=== PATIENT | male | born 1985 | race Hispanic/Latino ===

== ENCOUNTER 2018-06-13 12:56 | Emergency (ER) | payer SELFPAY ==
[2018-06-13 13:03] VITALS: BMI 20.9
[2018-06-13] MEDS ORDERED: Sodium Chloride 0.9% 1,000 ML IV ONE (13:29)
[2018-06-13] MEDS ORDERED: Sodium Chloride 0.9% 1,000 ML ONE (13:41)
[2018-06-13 13:56] LABS: BASO # 0.1 K/uL (0.0-0.2); BASO % 0.7 % (0.0-2.0); EOS # 0.1 K/uL (0.0-0.7); EOS % 0.6 % (0.0-4.0); HEMOGLOBIN 16.8 g/dL (12.0-18.0); LYMPH # 1.6 K/uL (1.0-4.3); LYMPH % 16.8 % (20.0-40.0); MEAN CELL VOLUME 89.5 fL (80.0-94.0); MEAN CORPUSCULAR HEMOGLOBIN 31.2 pg (27.0-31.0); MEAN CORPUSCULAR HGB CONC 34.9 g/dL (33.0-37.0); MEAN PLATELET VOLUME 7.4 fL (7.2-11.7); MONO # 0.7 K/uL (0.0-0.8); MONO % 7.3 % (0.0-10.0); NEUT # 7.3 K/uL (1.8-7.0); NEUT % 74.6 % (50.0-75.0); NRBC % 0.1 % (0.0-2.0); RBC 5.39 Mil/uL (4.40-5.90); RED CELL DISTRIBUTION WIDTH 13.1 % (11.5-14.5); WHITE BLOOD COUNT 9.7 K/uL (4.8-10.8)
[2018-06-13 14:07] LABS: ALB/GLOB RATIO 1.6 (1.0-2.1); ALBUMIN 4.7 g/dL (3.5-5.0); ALT/SGPT 24 U/L (21-72); AST/SGOT 25 U/L (17-59); BLOOD UREA NITROGEN 17 mg/dL (9-20); CALCIUM 9.8 mg/dl (8.6-10.4); GFR NON-AFRICAN AMERICAN > 60; LIPASE 28 U/L (23-300)
--- NOTE | 2018-06-13 14:42 | CT ---
CT abdomen and pelvis HISTORY: Left flank pain. Comparison: None available. Technique: Multiple contiguous axial images were performed through the abdomen and pelvis without the use of intravenous contrast. Subsequently, sagittal and coronal reformatted images were obtained. This CT exam was performed using one or more of the following dose reduction techniques: Automated exposure control, adjustment of the mA and/or kV according to patient size, and/or use of iterative reconstruction technique. Findings: 5 millimeter calculus seen within the posterior left urinary bladder near the left ureterovesicular junction with associated moderate left hydroureteronephrosis. 2 millimeter subpleural nodular density in the lingula. Mild bibasilar atelectasis. No pleural or pericardial effusion. Liver and gallbladder are preserved. Spleen is preserved. Adrenal glands are preserved. Pancreas is preserved. Upper abdominal bowel is preserved. 4 and 3 millimeter nonobstructive calculi in the lower pole of the right kidney. Heterogeneous prostate. Fecal retention in the colon. Scattered areas of underdistention in the left hemicolon. Appendix not well visualized on this noncontrast study. If there is concern for appendiceal pathology, consider correlation with a contrast-enhanced CT. Few shotty para-aortic and mesenteric lymph nodes. Osseous structures grossly preserved. Impression: 5 millimeter calculus seen within the posterior left urinary bladder near the left ureterovesicular junction with associated moderate left hydroureteronephrosis. 4 and 3 millimeter nonobstructive calculi in the lower pole of the right kidney.
[2018-06-13 15:48] VITALS: BP 128/76; PULSE 79; RESP 16; TEMP 98.2; O2SAT 98
--- NOTE | 2018-06-13 16:56 | C.PDOC ---
History Of Present Illness 32 y/o male presents to the ED complaining of left flank pain for 1 week. Pain is described as sharp and wrapping around to the LLQ. Patient also reports mild nausea, but no vomiting. Denies any associated dysuria, hematuria, fever, chills, or diarrhea. Time Seen by Provider: 06/13/18 13:15 Chief Complaint (Nursing): Abdominal Pain History Per: Patient History/Exam Limitations: no limitations Onset/Duration Of Symptoms: Days Current Symptoms Are (Timing): Still Present Radiation Of Pain To:: Flank Associated Symptoms: Nausea Past Medical History Reviewed: Historical Data, Nursing Documentation, Vital Signs Vital Signs: Last Vital Signs Temp 98.2 F 06/13/18 15:47 Pulse 79 06/13/18 15:47 Resp 16 06/13/18 15:47 BP 128/76 06/13/18 15:47 Pulse Ox 98 06/13/18 15:47 Surgical History: No Surg Hx - [facility] Procedures CLOSURE SKIN & SUBCUTANEOUS NEC (11/15/14) Family History: States: No Known Family Hx - Social History Hx Tobacco Use: Yes Hx Alcohol Use: Yes Hx Substance Use: Yes - Immunization History Hx Tetanus Toxoid Vaccination: No Hx Influenza Vaccination: No Hx Pneumococcal Vaccination: No Review Of Systems Constitutional: Negative for: Fever, Chills Gastrointestinal: Positive for: Nausea, Abdominal Pain (and left flank). Negative for: Vomiting, Diarrhea Genitourinary: Negative for: Dysuria, Hematuria Neurological: Negative for: Weakness, Numbness, Incoordination Physical Exam - Physical Exam Appears: Non-toxic, No Acute Distress Skin: Normal Color, Warm, Dry Head: Atraumatic, Normacephalic Eye(s): bilateral: Normal Inspection, PERRL, EOMI Oral Mucosa: Moist Neck: Normal ROM Chest: Symmetrical Cardiovascular: Rhythm Regular, No Murmur Respiratory: Normal Breath Sounds, No Rales, No Rhonchi, No Wheezing Gastrointestinal/Abdominal: Soft, No Tenderness, No Distention, No Guarding Back: CVA Tenderness (Left-sided), No Vertebral Tenderness Extremity: Bilateral: Atraumatic, Normal Color And Temperature Neurological/Psych: Oriented x3, Normal Speech ED Course And Treatment - Laboratory Results Result Diagrams: 06/13/18 13:52 06/13/18 13:52 O2 Sat by Pulse Oximetry: 98 (RA) Pulse Ox Interpretation: Normal - CT Scan/US CT abd/pelvis Other Rad Studies (CT/US): Read By Radiologist, Radiology Report Reviewed CT/US Interpretation: Accession No. : [id number]. Patient Name / ID : CHRISTIANO GAMINO / [id number]. Exam Date : 06/13/2018 14:07:53 ( Approved ). Study Comment : Sex / Age : M / 32Y. Creator : Braden Hdz MD. Dictator : Braden Hdz MD. Pre Sales Network Engineer : Student Development Advisor : Braden Hdz MD. Approver2 : Report Date : 06/13/2018 14:38:27. My Comment : . CT abdomen and pelvis. HISTORY: Left flank pain. Comparison: None available. Technique: Multiple contiguous axial images were performed through the abdomen and pelvis without the use of intravenous contrast. Subsequently, sagittal and coronal reformatted images were obtained. This CT exam was performed using one or more of the following dose reduction techniques: Automated exposure control, adjustment of the mA and/or kV according to patient size, and/or use of iterative reconstruction technique. Findings: 5 millimeter calculus seen within the posterior left urinary bladder near the left ureterovesicular junction with associated moderate left hydroureteronephrosis. 2 millimeter subpleural nodular density in the lingula. Mild bibasilar atelectasis. No pleural or pericardial effusion. Liver and gallbladder are preserved. Spleen is preserved. Adrenal glands are preserved. Pancreas is preserved. Upper abdominal bowel is preserved. 4 and 3 millimeter nonobstructive calculi in the lower pole of the right kidney. Heterogeneous prostate. Fecal retention in the colon. Scattered areas of underdistention in the left hemicolon. Appendix not well visualized on this noncontrast study. If there is concern for appendiceal pathology, consider correlation with a contrast-enhanced CT. Few shotty para-aortic and mesenteric lymph nodes. Osseous structures grossly preserved. Impression: 5 millimeter calculus seen within the posterior left urinary bladder near the left ureterovesicular junction with associated moderate left hydroureteronephrosis. 4 and 3 millimeter nonobstructive calculi in the lower pole of the right kidney. Medical Decision Making Medical Decision Making: Impression: Flank Pain, Nausea Initial Plan: --CMP --Lipase --CBC --Urinalysis --Urine culture --1 L IV fluids --Toradol 30 mg IV --Zofran 4 mg IV --CT Abd/Pelvis without contrast Progress/Updates: Labs reviewed. Patient notified of CT findings. On re-evaluation patient reports improvement in pain. He remains AAOx3, in no acute distress, and is stable for discharge. Counseled regarding prescriptions and diagnosis. Patient advised to follow up with urologist within 2 days. Disposition Counseled Patient/Family Regarding: Studies Performed, Diagnosis, Need For Followup, Rx Given - Disposition Referrals: Evaristo Foley MD [Staff Provider] - Disposition: HOME/ ROUTINE Disposition Time: 14:50 Condition: IMPROVED Additional Instructions: MAX ALVARADO, thank you for letting us take care of you today. Your provider was Natan Patrick DO and you were treated for ABD PAIN. The emergency medical care you received today was directed at your acute symptoms. If you were prescribed any medication, please fill it and take as directed. It may take several days for your symptoms to resolve. Return to the Emergency Department if your symptoms worsen, do not improve, or if you have any other problems. Please contact your doctor or call one of the physicians/clinics you have been referred to that are listed on the Patient Visit Information form that is included in your discharge packet. Bring any paperwork you were given at discharge with you along with any medications you are taking to your follow up visit. Our treatment cannot replace ongoing medical care by a primary care provider outside of the emergency department. Thank you for allowing the [facility] team to be part of your care today. Drink plenty of water. Follow up with the urologist in 2 days. Prescriptions: Ciprofloxacin [Cipro] 500 mg PO BID #14 tab oxyCODONE/Acetaminophen [Percocet 5/325 mg Tab] 1 ea PO Q6 PRN #20 tab PRN Reason: Pain, Severe (8-10) Tamsulosin [Flomax] 0.4 mg PO DAILY #7 cap Instructions: Kidney Stones (DC), How to Strain Your Urine Forms: [facility] (Norwegian), Work Excuse - POA Present On Arrival: None - Clinical Impression Clinical Impression: Kidney stone - Scribe Statement The provider has reviewed the documentation as recorded by the Latosha Fitzpatrick Provider Attestation: All medical record entries made by the Gaboibabigail were at my direction and personally dictated by me. I have reviewed the chart and agree that the record accurately reflects my personal performance of the history, physical exam, medical decision making, and the department course for this patient. I have also personally directed, reviewed, and agree with the discharge instructions and disposition.
== END 2018-06-13 15:47 | disposition home or self-care (01) ==
LOC: C.ER 12:56
DX: N13.2 Hydronephrosis with renal and ureteral calculous obstruction (principal)
CPT/HCPCS: 74176; 80053; 83690; 85025; 96361; 96374; 96375; 99284; J1885; J2405; J7030